=== PATIENT | female | born 1955 | race Caucasian/White ===

== ENCOUNTER → 2021-02-17 | Outpatient (CLI) | payer MEDICARE, OTHER ==
[~2021-02-17] MED LIST: AMLO5 PO; ASPI325EC PO; Advil200 M1 PO; CHOL10002 PO; Calcium Magnes1 EAC1 PO; FLAX FISH PO; LISI20 PO; LOVA40 PO; MAGNESIUM PO; METO50 PO; Multiple Vitam1 EAC1 PO; OXYC5 PO; PROM25 PO; Percocet 5-3251 EACH PO; [UNRECOGNIZED DRUG - OTHER] PO
== END ==
LOC: LAB SHORT 11:19 → LAB 11:19
DX: D48.5 Neoplasm of uncertain behavior of skin (principal); L81.4 Other melanin hyperpigmentation
CPT/HCPCS: 88305; 88342

== ENCOUNTER → 2022-02-15 | Outpatient (CLI) | payer MEDICARE, OTHER | END | disposition home or self-care (01) | LOC: PLD 11:01 → LAB SHORT 11:01 | DX: D48.5 Neoplasm of uncertain behavior of skin (principal) | CPT/HCPCS: 88305 ==

== ENCOUNTER 2025-01-15 06:00 | Day surgery (SDC) | payer MEDICARE ==
[~2025-01-15] VITALS: Ht 157.5 cm; Wt 96.0 kg
[2025-01-15] VITALS (17 sets, daily range): BP systolic 102–153; BP diastolic 55–87
[~2025-01-15 06:00] MED LIST changes: -LOVA40 PO; +Lovastatin20 MG PO; +OMEP20ER PO; +PROBIOTIC1 EA14 PO
[2025-01-15] MEDS ORDERED: Tranexamic Acid 100 ML IV SCH (06:15)
[2025-01-15] MEDS ORDERED: OxyCODONE HCL 10 MG TABCR PO SCH (06:15)
[2025-01-15] MEDS ORDERED: Vancomycin HCL 1,000 MG in NS 250 ML IV SCH (06:15)
[2025-01-15] MEDS ORDERED: Lactated Ringer's 1,000 ML IV SCH ×2 (06:15→08:00)
[2025-01-15] MEDS ORDERED: Ropivacaine 0.5% HCl/Pf 123.125 MG,EPINEPHrine HCL 0.25 MG,Ketorolac Tromethamine 15 MG... INFIL SCH (06:15)
[2025-01-15] MEDS ORDERED: Chlorhexidine Mouth Care 15 ML UDC MT SCH (06:15)
[2025-01-15] MEDS ORDERED: CeFAZolin Sodium 2,000 MG in NS 100 ML IV SCH ×2 (06:15→16:00)
[2025-01-15] MEDS ORDERED: Acetaminophen 500 MG Tab PO SCH ×2 (06:15→08:00)
[2025-01-15] MEDS ORDERED: CeFAZolin Sodium 2,000 MG VIAL ONE (06:47)
--- NOTE | 2025-01-15 07:08 | NUR ---
History, Chart, Medications and Allergies reviewed before start of procedure. Lungs clear T/O to Auscultation. Patient confirms NPO status and agrees with scheduled surgery. Pre-Op teaching done. Pt verbalizes understanding. Patient reports completing Chlorhexadine shower X2 prior to admission to hospital. SMALL HEMATOMA AT INSERTION SIGHT OF IV BUT BLOOD RETURN AND FLUSHES EASILY. PT DENIES PAIN WITH INUFION OF FLUIDS, WILL CONTINUE TO MONITOR.
[2025-01-15] MEDS ORDERED: Bisacodyl 10 MG Supp PR PRN (07:35)
[2025-01-15] MEDS ORDERED: DiphenhydrAMINE HCL 25 MG Cap PO PRN (07:35)
[2025-01-15] MEDS ORDERED: Prochlorperazine Edisylate 10 mg Vial IV PRN (07:35)
[2025-01-15] MEDS ORDERED: Promethazine HCl 25 MG Tab PO PRN (07:35)
[2025-01-15] MEDS ORDERED: FentaNYL Citrate 50 MCG/ML 2 ML Injection ONE ×2 (07:36→11:11)
[2025-01-15] MEDS ORDERED: Midazolam HCl 1MG / ML 2ML Vial ONE (07:36)
[2025-01-15] MEDS ORDERED: propofoL 20 ML IV ONE ×2 (07:38→10:28)
[2025-01-15] MEDS ORDERED: HYDROmorphone HCl/Pf 1MG SYR IV PRN ×2 (07:40→08:15)
[2025-01-15] MEDS ORDERED: Metoclopramide HCl 5MG / ML 2ML Vial IV PRN (07:40)
[2025-01-15] MEDS ORDERED: Rocuronium Bromide 10 MG/ML 5ML Injection IV ONE (07:44)
[2025-01-15] MEDS ORDERED: OxyCODONE HCL 5 MG TAB PO PRN ×2 (07:45)
[2025-01-15] MEDS ORDERED: Ondansetron HCl 2 MG / ML 2ML Vial IV PRN ×2 (07:45→08:15)
[2025-01-15] MEDS ORDERED: Magnesium Hydroxide Conc 10 ML UDC PO PRN (07:45)
[2025-01-15] MEDS ORDERED: Dexamethasone Sod Phos 10 MG/ML 1ML VIAL ONE (07:53)
[2025-01-15] MEDS ORDERED: Labetalol HCL 5 MG/ML 4ML Injection (Single Dose) IV PRN (08:10)
[2025-01-15] MEDS ORDERED: HydrALAZINE HCl 20 MG / ML 1ML Vial IV PRN (08:15)
[2025-01-15] MEDS ORDERED: FentaNYL Citrate 50 MCG/ML 2 ML Injection IV PRN (08:15)
[2025-01-15] MEDS ORDERED: ePHEDrine Sulfate 50 MG/ML 1ML Injection ONE (08:16)
[2025-01-15] MEDS ORDERED: Docosahexanoic Acid/EPA 1,000 MG CAP PO SCH (09:00)
[2025-01-15] MEDS ORDERED: Lisinopril 20 MG Tab PO SCH (09:00)
[2025-01-15] MEDS ORDERED: AmLODIPine Besylate 5 MG Tab PO SCH (09:00)
[2025-01-15] MEDS ORDERED: Docusate Sodium 100 MG Cap PO SCH (09:00)
[2025-01-15] MEDS ORDERED: Ondansetron HCl 2 MG / ML 2ML Vial ONE (10:13)
[2025-01-15] MEDS ORDERED: Sugammadex Sodium 200 MG/2ML SDV (100 MG/ML) ONE (10:13)
[2025-01-15] MEDS ORDERED: Tranexamic Acid 100 ML IV ONE (11:26)
[2025-01-15] MEDS ORDERED: Ketorolac Tromethamine 15mg Vial IV SCH (12:00)
--- NOTE | 2025-01-15 12:12 | NUR ---
PT TO ROOM 219. FAMILY AT BEDSIDE. TWO GAUZE DRESSINGS TO LATERAL HIP AND ONE TO ANTERIOR THIGH HELD IN PLACE WITH TEGADERM. DENIES N/T TO LEG. MEDICATED FOR PAIN ON ARRIVAL. EATING A REGULAR DIET. IV TO SL.
[2025-01-15] MEDS ORDERED: ACET500 PO (13:09)
[2025-01-15] MEDS ORDERED: OXAYDO5 M1 PO (13:10)
[2025-01-15] MEDS ORDERED: SULTRIDS PO (13:11)
[2025-01-15] MEDS ORDERED: ONDA4 PO (13:12)
--- NOTE | 2025-01-15 14:08 | NUR ---
IV RIGHT HAND "SNAGGED" DURING OT EVAL. BRUISING NOTED TO INSERTION SITE. IV FLUSHES WELL. WILL CONTINUE TO MONITOR.
--- NOTE | 2025-01-15 16:24 | NUR ---
DISCHARGE NOTE POD 1 L GURPREET. VSS. WORKED WITH PHYSICAL AND OCCUPATIONAL THERAPY - AMBULATING WITH SBA FWW GB. FOLLOWING POSTERIOR PRECAUTIONS APPROPRIATELY. PAIN MANAGED WITH PRESCRIBED THERAPY. X1 EPISODE OF NAUSEA, NO VOMITING - MEDICATED PER EMAR WITH RELIEF. ORAL ZOFRAN PRESCRIBED BY AND FAXED TO [facility]. VOIDING. X3 SITES W/ GAUZE AND TEGADERM - C/D/I. IV REMOVED. WRITTEN AND VERBAL EDUCATION PROVIDED TO PATIENT AND SPOUSE - BOTH STATE UNDERSTANDING. PATIENT TRANSFERRED OFF UNIT TO PERSONAL VEHICLE VIA AT APPROX 1625. PERSONAL BELONGINGS WITH PATIENT.
[2025-01-15] MEDS ORDERED: Vancomycin HCL 1,000 MG in NS 250 ML IV ONE (19:00)
[2025-01-15] MEDS ORDERED: Metoprolol Tartrate 50 MG Tab PO SCH (21:00)
[2025-01-15] MEDS ORDERED: Lactobacil 2-S.Thermo-Bifido 1 1 Cap PO SCH (21:00)
[2025-01-15] MEDS ORDERED: Atorvastatin 10 MG Tab PO SCH (21:00)
[2025-01-16] MEDS ORDERED: Omeprazole 20 MG CapCR PO SCH (06:00)
[2025-01-16] MEDS ORDERED: Multivitamins/Minerals TAB PO SCH (09:00)
[2025-01-16] MEDS ORDERED: Aspirin 81 MG Chew PO SCH (09:00)
[2025-01-16] MEDS ORDERED: Trimethoprim/Sulfamethoxazole DS Tab PO SCH (09:00)
== END 2025-01-15 16:29 | disposition home or self-care (01) ==
LOC: ORSCMMR 06:00 → ORD 07:30 → ORSCMMR 07:30 → SURS 11:21 → ORD 14:00 → ORSCMMR 16:29
PROVIDERS: Orthopaedic Surgery
PROC: 0SRB0JA Replacement of Left Hip Joint with Synthetic Substitute, Uncemented, Open Approach (ICD-10-PCS; principal; 2025-01-15 07:30)
DX: M16.12 Unilateral primary osteoarthritis, left hip (principal); Z96.641 Presence of right artificial hip joint; I10 Essential (primary) hypertension; K21.9 Gastro-esophageal reflux disease without esophagitis; E66.9 Obesity, unspecified; Z68.38 Body mass index [BMI] 38.0-38.9, adult; Z79.899 Other long term (current) drug therapy; Z79.82 Long term (current) use of aspirin
CPT/HCPCS: 72170; 97110; 97116; 97162; 97165; 97530; 97535; A9270; C1713; C1776; J0171; J0690; J0735; J1100; J1885; J2250; J2405; J2704; J2765; J2795; J3010; J3370; J7050; J7120